=== PATIENT | female | born 1975 ===

== ENCOUNTER 2016-03-03 15:44 | Emergency (ER) | payer MEDICAID ==
[~2016-03-03] VITALS: Ht 160 cm; Wt 72.7 kg
[~2016-03-03 15:44] MED LIST: ACYC200C2 PO; PREN1TAB47 PO
[2016-03-03 15:47] VITALS: BP 114/76; PULSE 95; RESP 16; O2SAT 98
[2016-03-03 16:59] LABS: BASOPHILS % (AUTO) 0.5 % (0-3); EOSINOPHILS % (AUTO) 0.2 % (0-5); MONOCYTES % (AUTO) 15.9 % (4-12); Mean Corpuscular Volume 84.9 fL (81-100); NEUTROPHILS % (AUTO) 71.5 % (40-74); Platelet Count 407 bil/L (150-400)
[2016-03-03 17:27] LABS: TROPONIN T < 0.010 ug/L (0.0-0.011)
[2016-03-03 18:19] VITALS: BP 98/63; PULSE 84; RESP 22; O2SAT 95
[2016-03-03] MEDS ORDERED: Ketorolac 30 mg/mL 2 mL Inj IM ONE (19:00)
[2016-03-03] MEDS ORDERED: Ondansetron 8 mg ODT Tablet PO ONE (19:00)
--- NOTE | 2016-03-03 19:28 | ED.REPORT ---
HPI-Headache Date of Service Mar 03, 2016 ED Provider: Greg Johnson PA-C Patient is 40-year-old female with chief complaint of headache. States that her headache began last night as a "light headache" with pain in her left congregation. She noticed shortly after that noticed a foreign body sensation in her left eye and her left eye became bloodshot. She was seen in urgent care last night and prescribed ondansetron and ketorolac. She did not find these helpful. Today her pain is a throbbing "tight pressure" that she locates across the frontal part of her forehead. He also complains of sinus "burning", clear nasal discharge, cough that triggered by deep inhalation and diarrhea, chills last night, and myalgias (which are normal and at baseline for her). Admits a history of headaches "related to stress" that sometimes are occipital and sometimes frontal, but of less severity than this headache today. Denies vision changes, chest pain, shortness of breath, wheezing, abdominal pain, vomiting. Nursing Notes Stated Complaint: DIZZY/HEADACHE/FATIGUE Chief Complaint: General Complaint Nursing Notes Reviewed: Yes Allergies: Coded Allergies: No Known Allergies (Verified , 03/03/16) Scheduled Acyclovir-Expunged Drug, Do Not Renew! (Acyclovir-Expunged Drug, Do Not Renew!) 200 Mg Capsule 200 MG PO DAILY Vit/Fe Fumarate/Fa-Expunged Drug, Do (-Expunged Drug, Do Not Renew!) 1 Tab Tablet 1 TAB PO DAILY General Time Seen by MD: 18:26 Chief Complaint Headache Sudden in Onset?: No Past Medical History Past Medical History Fibromyalgia 3 bulging disks in back Tetanus per old reports Family History Depression Social History Alcohol Use: 1-3 per day Drug Use: Denies drug use Ambulatory Status Independent Review of Systems Negative unless otherwise stated otherwise in history of present illness Physical Exam General: Well appearing, well developed, well nourished, no acute distress. Appears to be resting comfortably on the gurney looking at her phone Head: Atraumatic, normocephalic. Eyes: Conjunctival hemorrhage, lateral aspect of the left eye. Anterior chamber clear. No discharge. Vision grossly intact. ENT: Voice clear, hearing grossly intact. Respiratory: Regular rate and rhythm. Breath sounds present, clear to auscultation and equal bilaterally. Cardiovascular: Regular rate and rhythm, without murmur, gallop or rub. No pedal edema. Gastrointestinal: Abdomen flat and non-tender without guarding or rebound. Bowel sounds normoactive. Skin: Warm and dry. Neurological: Grossly nonfocal. Cranial nerves: Vision grossly intact, PERRL, EOMI. Facial motion symmetrical, sensation to light touch over forehead, maxilla and mandible present and equal B /L. Voice clear and fluent, no drooling/pooling of saliva, uvula rises midline. Psychological: Alert and oriented. Speech appropriate, linear and logical. Behavior appropriate. Initial Vital Signs Vital Signs (First) Date Time Temp Pulse Resp B/P Pulse Ox O2 Delivery O2 Flow Rate FiO2 03/03/16 15:47 38.2 95 16 114/76 98 Room Air Initial VS: Reviewed, Vital signs abnormal (febrile) Interpretation & Diagnostics Lab Results Interpretation Result Diagram: 03/03/16 1615 03/03/16 1615 Test 03/03/16 16:15 03/03/16 16:58 03/03/16 19:29 White Blood Count 6.0th/mm3 (3.8-10.1) Red Blood Count 4.65mil/mm3 (3.90-5.20) Hemoglobin 13.0g/dL (12.0-15.6) Hematocrit 39.5% (35.0-46.0) Mean Corpuscular Volume 84.9fL (81-100) Mean Corpuscular Hemoglobin 28.0pg (27.0-35.0) Mean Corpuscular Hemoglobin Concent 32.9% (32.0-37.0) Red Cell Distribution Width 14.9% (12.3-15.4) Platelet Count 407bil/L (150-400) Neutrophils (%) (Auto) 71.5% (40-74) Lymphocytes (%) (Auto) 11.9% (14-46) Monocytes (%) (Auto) 15.9% (4-12) Eosinophils (%) (Auto) 0.2% (0-5) Basophils (%) (Auto) 0.5% (0-3) Erythrocyte Sedimentation Rate 22mm/hr (0-32) Sodium Level 133mEq/L (134-144) Potassium Level 4.4mEq/L (3.5-5.2) Chloride Level 99mEq/L (97-108) Carbon Dioxide Level 22mmol/L (18-29) Blood Urea Nitrogen 15mg/dL (6-20) Creatinine 0.69mg/dL (0.57-1.00) Estimat Glomerular Filtration Rate 136mL/min (>59) Glucose Level 93mg/dL (60-99) Calcium Level 8.2mg/dL (8.5-10.1) Magnesium Level 2.0mg/dL (1.6-2.6) Total Bilirubin 0.2mg/dL (0.0-1.2) Aspartate Amino Transf (AST/SGOT) 26U/L (0-50) Alanine Aminotransferase (ALT/SGPT) 23U/L (0-32) Alkaline Phosphatase 59U/L (25-150) Troponin T < 0.010ug/L (0.0-0.011) Total Protein 7.4g/dL (6.4-8.4) Albumin 4.1g/dL (3.4-5.0) Hold Sarmiento Top Tube Received (Received) Urine Color Straw (YELLOW) Urine Appearance Clear (CLEAR,HAZY) Urine pH 6.5 (5.0-8.0) Urine Specific [place] 1.005 (1.003-1.035) Urine Protein Negativemg/dL (NEG,TRACE) Urine Glucose (UA) Negativemg/dL (NEGATIVE) Urine Ketones Negativemg/dL (NEGATIVE) Urine Occult Blood Moderate (NEGATIVE) Urine Nitrite Negative (NEGATIVE) Urine Bilirubin Negative (NEGATIVE) Urine Urobilinogen Normalmg/dL (NORMAL) Urine Leukocyte Esterase Trace (NEGATIVE) Urine RBC 3-10/hpf (0-2) Urine WBC 6-10/hpf (0-5) Urine Epithelial Cells Few/hpf (NONE-MOD) Urine Crystals Amorphous urates (NONE Urine Bacteria Few/hpf (NONE-FEW) Urine Hyaline Casts None/lpf (NONE) Urine Granular Casts None seen (NONE SEEN) Urine Waxy Casts None seen (NONE SEEN) Urine Red Blood Cell Casts None seen (NONE SEEN) Urine White Blood Cell Casts None seen (NONE SEEN) Urine Mucus None seen (None Seen) Urine Trichomonas None seen (NONE SEEN) Urine Yeast None (NONE SEEN) Urinalysis Comment None Urine Culture Reflexed Indicated Re-Eval/Medical Decision Med Decision/Clinical Course Discussed this case with Dr. Moon, who met with and examined the patient, and took over care of the patient at end of shift. Considered vasculitis, ESR normal Consider meningitis, however patient is alert and oriented, supple neck Clinical presentation is inconsistent with an aneurysm. Re-Evaluation/Progress : Time of Eval: 20:57 Re-Evaluation/Progress Note: Temperature reduced to 36.7C orally, headache has improved but still present. Discharge & Departure Impression: Primary Impression: Headache Headache type: unspecified Headache chronicity pattern: acute headache Intractability: not intractable Qualified Code: R51 - Headache Additional Impression: Fever Fever type: unspecified Qualified Code: R50.9 - Fever, unspecified Disposition: Home Discharge Condition All VS Reviewed: Yes Condition: Improved Patient Instructions: Acute Headache (ED), Influenza (DC) Additional Instructions: You have a fever, runny nose and headache. We are seeing lots of influenza A& B. You will be also tested for influenza in a couple of hours. I understand you are feeling better and you feel ready be discharged home. That is a good sign. I recommend that she take Tamiflu twice daily for 5 days. This is an anti-influenza medication. Tylenol or Motrin as directed for fever and body aches. Avoid aspirin products. Follow-up with her primary care physician. If you develop a thunderclap headache or neck stiffness or any worsening symptoms and come right back to the emergency department. Referrals: Lorena Levine (PCP) EDSupervising Provider for APC: Brent Moon Attestation Portions of this note were transcribed by Shirley Luna. I, Dr. Moon personally performed the history, physical exam and medical decision-making; I reviewed and confirmed the accuracy of the information in the transcribed note. Signed by: Bell Finley, 03/04/2016 0028 Attending Statement I personally spoke with Mrs. Jones. I performed an examination. She has no signs of meningitis. She has classic influenza A. We will treat her. It is going to be several hours before we can prove this. Evidently the lab is out of the materials to run the test. Influenza A is highly likely. Anti- inflammatories and Tamiflu. Meningitis clinically very low probability. I think the risks of a spinal tap outweigh the benefit. This was explained. Patient concurred. As it were the influenza A came back positive. copies to: Lorena Levine Seth PA-C Mar 03, 2016 19:28 Brent Moon DO Mar 04, 2016 00:09 Shirley Luna Mar 04, 2016 00:11
[2016-03-03 20:23] LABS: APPEARANCE,URINE CLEAR (CLEAR,HAZY); COLOR,URINE STRAW (YELLOW); OCCULT BLOOD,URINE MODERATE (NEGATIVE); PH,URINE 6.5 (5.0-8.0); UROBILINOGEN,URINE NORMAL (NORMAL)
[2016-03-04 01:14] VITALS: BP 99/69; PULSE 64; RESP 14; O2SAT 97
== END 2016-03-04 01:15 | disposition home or self-care (01) ==
LOC: SED 15:44
DX: J10.89 Influenza due to other identified influenza virus with other manifestations (principal)
CPT/HCPCS: 36415; 80053; 81000; 81025; 83735; 84484; 85025; 85651; 87086; 87804; 93005; 96372; 99284; J1885

== ENCOUNTER 2016-03-28 13:24 | Emergency (ER) | payer MEDICAID ==
[~2016-03-28] VITALS: Ht 160 cm; Wt 72.7 kg
[2016-03-28 13:29] VITALS: BP 106/69; PULSE 107; RESP 15; O2SAT 97
[2016-03-28] MEDS ORDERED: 0.9% Sodium Chloride 1,000 ML IV ONE (15:54)
[2016-03-28] MEDS ORDERED: MetoCLOpramide 5 mg/mL 2 mL Inj IVPUSH ONE (15:55)
[2016-03-28 16:07] LABS: BASOPHILS % (AUTO) 0.3 % (0-3); EOSINOPHILS % (AUTO) 2.1 % (0-5); MONOCYTES % (AUTO) 9.2 % (4-12); Mean Corpuscular Hemoglobin 27.7 pg (27.0-35.0); Mean Corpuscular Volume 84.7 fL (81-100); NEUTROPHILS % (AUTO) 63.7 % (40-74); Platelet Count 545 bil/L (150-400)
--- NOTE | 2016-03-28 16:09 | ED.REPORT ---
HPI-Headache Date of Service Mar 28, 2016 ED Provider: Cm Thomas MD 40 year old female presents to the ER complaining of three days of left side temporal headache. Associated symptoms include left side jaw pain, and nausea. Patient denies aura, visual changes, fever, vomiting, or altered mental status. Symptoms are similar to prior headaches. Nursing Notes Stated Complaint: PERSISTANT HEADACHE,PAIN LT SIDE OF HEAD Chief Complaint: Headache Nursing Notes Reviewed: Yes Allergies: Coded Allergies: No Known Allergies (Verified , 03/28/16) Scheduled Acyclovir-Expunged Drug, Do Not Renew! (Acyclovir-Expunged Drug, Do Not Renew!) 200 Mg Capsule 200 MG PO DAILY Vit/Fe Fumarate/Fa-Expunged Drug, Do (-Expunged Drug, Do Not Renew!) 1 Tab Tablet 1 TAB PO DAILY General Time Seen by MD: 15:31 Chief Complaint Headache Hx Obtained From: Patient Arrived By: Walk-in Sudden in Onset?: No Onset Occurred: 3 days ago Symptom Duration: Since onset Location: : Frontal left: Generalized: Occipital left: Parietal left: Temporal left Quality: Painful Severity: Current: Moderate Severity: Maximum: Moderate Associated with: Reports: Nausea, Denies: Aura motor, Aura sensory, Aura visual, Confusion, Fever, Vomiting Past Medical History Past Medical History Fibromyalgia 3 bulging disks in back Tetanus per old reports Family History Depression Social History Alcohol Use: 1-3 per day Drug Use: Denies drug use Ambulatory Status Independent Review of Systems Constitutional: Denies: Chills, Fever Eyes: Reports: Photophobia, Denies: Visual loss bilateral GI: Reports: Nausea, Denies: Vomiting Neurologic: Reports: Headache, Denies: Change LOC, Confusion, Numbness, Slurred speech, Syncope, Vision change Complete sys rev & neg: except as marked. Physical Exam Initial Vital Signs Vital Signs (First) Date Time Temp Pulse Resp B/P Pulse Ox O2 Delivery O2 Flow Rate FiO2 03/28/16 13:29 37.2 107 15 106/69 97 Room Air Initial VS: Reviewed Respiratory: Breath sounds normal, Clear to auscultation, No respiratory distress Cardiovascular: Regular rate & rhythm, Heart sounds normal, Intact distal pulses Extremities: Vascular intact, Neuro intact, No swelling, No tenderness Skin: Warm, Dry, No cyanosis Psychiatric: Mood/affect normal, Behavior normal, Normal thought content General/Constitutional: Awake, Alert, Well developed, Well nourished Head / Eyes: Atraumatic, Normocephalic, PERRL, EOMI Head / Scalp Abnl: Positive: Scalp tender frontal L, Scalp tender frontal R, Scalp tender parietal L, Scalp tender parietal R, Scalp tender temporal L, Scalp tender temporal R Neck: Supple, No meningismus, Full range of motion, No swelling, Non-tender, No masses Neurologic: Oriented X3, Speech NL, No motor deficits, No sensory deficits, CN II - XII intact, Cerebellar NL ENT: Airway patent, Mucous membranes moist Sinus: Positive: Tender frontal L, Tender frontal R, Tender maxillary L, Tender maxillary R, Tender moderate Interpretation & Diagnostics Lab Results Interpretation Result Diagram: 03/28/16 1555 03/28/16 1555 Test 03/28/16 15:55 White Blood Count 12.2th/mm3 (3.8-10.1) Red Blood Count 4.77mil/mm3 (3.90-5.20) Hemoglobin 13.2g/dL (12.0-15.6) Hematocrit 40.4% (35.0-46.0) Mean Corpuscular Volume 84.7fL (81-100) Mean Corpuscular Hemoglobin 27.7pg (27.0-35.0) Mean Corpuscular Hemoglobin Concent 32.7% (32.0-37.0) Red Cell Distribution Width 14.9% (12.3-15.4) Platelet Count 545bil/L (150-400) Neutrophils (%) (Auto) 63.7% (40-74) Lymphocytes (%) (Auto) 24.5% (14-46) Monocytes (%) (Auto) 9.2% (4-12) Eosinophils (%) (Auto) 2.1% (0-5) Basophils (%) (Auto) 0.3% (0-3) Sodium Level 138mEq/L (134-144) Potassium Level 4.2mEq/L (3.5-5.2) Chloride Level 100mEq/L (97-108) Carbon Dioxide Level 25mmol/L (18-29) Blood Urea Nitrogen 9mg/dL (6-20) Creatinine 0.56mg/dL (0.57-1.00) Estimat Glomerular Filtration Rate 173mL/min (>59) Glucose Level 116mg/dL (60-99) Calcium Level 8.3mg/dL (8.5-10.1) Hold Sarmiento Top Tube Received (Received) Re-Eval/Medical Decision Med Decision/Clinical Course In summary, the patient is a 40-year-old female, who presents with headache. Our primary and secondary assessment reveals an awake, alert patient in no acute distress. Hemodynamically stable and afebrile. Exam reveals normal neurologic exam. Suspect the patient's headache represents a migraine or tension type headache. Considered other causes of headache to include: Subdural hemorrhage, subarachnoid hemorrhage, [employer] IN[employer] tumor, meningitis, encephalitis, venous sinus thrombosis, dissection, temporal arteritis, intracranial hypertension ( psuedotumor cerebri), sinusitis or cervicalgia, although these are less likely based on the history, exam findings as noted above. Based on this, I feel that imaging would be low yield and is not warranted at this time. Discussed the risks and benefits of this with the patient who is in agreement. Also discussed with the patient at length that if symptoms change, worsen, or persist, should return to the ER for reevaluation. They understand and agree with the plan. Given the patient's workup, feel they are safe for discharge. The patient was treated with 30 mg of intramuscular Toradol and reported complete symptom resolution. Source of Hx: Old records Re-Evaluation/Progress : Time of Eval: 16:19 Re-Evaluation/Progress Note: Discussed lab results and plan to discharge. Patient is amenable to the plan. Return precautions given. All other questions addressed. Counseled Regarding: Diagnosis, Lab results, Need for follow-up, When/why to return to ED Discharge & Departure Impression: Primary Impression: Tension-type headache Headache chronicity pattern: acute headache Intractability: not intractable Qualified Code: G44.209 - Tension-type headache, unspecified, not intractable Disposition: Home Discharge Condition All VS Reviewed: Yes Condition: Stable Patient Instructions: Tension Headache (DC) Additional Instructions: Thank you for seeking care at emergency room. It is difficult for us to make definitive diagnoses in the ED but we believe that you are experiencing a migraine or tension type headache. Our primary goal today in the ED was to evaluate you for any life-threatening conditions. Your evaluation was reassuring. You should follow-up with your primary doctor in the next week. Get plenty of rest over the next day as this can often help with headaches. You should return to the ED immediately if you develop worsening/change in headache, neck stiffness, vision changes, fevers, vomiting, cough, shortness of breath, chest pain, lightheadedness, weakness or any other concerning signs or symptoms. Thank you for letting us partake in your care today. Referrals: Lorena eLvine (PCP) [facility] Attestation Portions of this note were transcribed by Prem Caba. I, Dr. Thomas, personally performed the history, physical exam and medical decision-making; I reviewed and confirmed the accuracy of the information in the transcribed note. Signed by: Bell Dave, 03/28/2016 and 16:25 copies to: Lorena Levine Beck O MD Mar 28, 2016 16:09 PREM CABA Mar 28, 2016 16:23
[2016-03-29] MEDS ORDERED: PROC-4 PO (10:46)
[2016-03-29] MEDS ORDERED: NPR500T PO (10:46)
== END 2016-03-28 16:36 | disposition home or self-care (01) ==
LOC: SED 13:24
DX: G44.209 Tension-type headache, unspecified, not intractable (principal); R68.84 Jaw pain; R11.0 Nausea; M79.7 Fibromyalgia

== ENCOUNTER 2016-03-29 09:23 | Emergency (ER) | payer MEDICAID ==
[~2016-03-29] VITALS: Ht 160 cm; Wt 75.5 kg
[2016-03-29 09:27] VITALS: BP 108/72; PULSE 80; RESP 16; O2SAT 99
--- NOTE | 2016-03-29 09:35 | ED.REPORT ---
HPI-Headache Date of Service Mar 29, 2016 ED Provider: Jan Bourne DO 40 year old female with a history of fibromyalgia, psychiatric admissions, and alcohol abuse presents to the ER complaining of several weeks of gradually worsening headache. Patient was seen here in the ER yesterday for similar symptoms, at which time she was diagnosed with a tension headache, treated with IM Toradol and discharged. She states that her treatment yesterday did not resolve symptoms, she merely "claimed that she was improved to please the provider". Since then she has new onset "sharp shooting" left leg and arm pain that is different than her typical fibromyalgia symptoms. Headache is not thunder-clap in nature. She denies nasal congestion, nausea, and vomiting. Yesterday she complained of left side headache lasting several days, but now reports that the pain has been present for weeks and has consistently been localized frontally. Patient spontaneously starts talking about childhood trauma. Nursing Notes Stated Complaint: LEFT HEAD PAIN/BODY PAIN/LEFT EYE BLOODSHOT Chief Complaint: Headache Nursing Notes Reviewed: Yes Allergies: Coded Allergies: No Known Allergies (Verified , 03/28/16) Scheduled Acyclovir-Expunged Drug, Do Not Renew! (Acyclovir-Expunged Drug, Do Not Renew!) 200 Mg Capsule 200 MG PO DAILY Vit/Fe Fumarate/Fa-Expunged Drug, Do (-Expunged Drug, Do Not Renew!) 1 Tab Tablet 1 TAB PO DAILY Scheduled PRN Naproxen (Naproxen) 500 Mg Tab 500 MG PO BID PRN PRN For Pain Prochlorperazine Maleate (Compazine) 10 Mg Tablet 10 MG PO TID PRN PRN For Headache General Time Seen by MD: 09:34 Chief Complaint Headache Hx Obtained From: Patient Arrived By: Walk-in Sudden in Onset?: No Onset Occurred: 4 days ago Symptom Duration: Since onset Location: : Frontal left: Frontal right Quality: Painful, Pressure Severity: Current: Moderate Severity: Maximum: Moderate Associated with: Reports: Nausea Pertinent Negative: Pt denies other symptoms Recent Healthcare: Recent doctor visit Similar Sx Previous: Yes Past Medical History Past Medical History Fibromyalgia 3 bulging disks in back Tetanus per old reports Family History Depression Smoking History Never Smoker Social History Alcohol Use: In recovery Drug Use: Denies drug use Ambulatory Status Independent Review of Systems Constitutional: Denies: Chills, Fever Ears / Nose / Throat: Denies: Earache bilateral, Nasal congestion GI: Denies: Nausea, Vomiting Musculoskeletal: Reports: Extremity pain (Left leg) Neurologic: Reports: Headache, Denies: Slurred speech, Syncope, Unable to speak Complete sys rev & neg: except as marked. Physical Exam Initial Vital Signs Vital Signs (First) Date Time Temp Pulse Resp B/P Pulse Ox O2 Delivery O2 Flow Rate FiO2 03/29/16 09:27 36.0 80 16 108/72 99 Room Air Initial VS: Reviewed Respiratory: Breath sounds normal, Clear to auscultation, No respiratory distress Cardiovascular: Regular rate & rhythm, Heart sounds normal, Intact distal pulses Abdomen / GI: Soft, Non-tender, No guarding, No rebound, No distention Extremities: Vascular intact, Neuro intact, No swelling, No tenderness Skin: Warm, Dry, No cyanosis General/Constitutional: Awake, Alert, Well developed, Well nourished Head / Eyes: Atraumatic, Normocephalic, PERRL, EOMI Neck: Supple, No meningismus, Full range of motion, No swelling, Non-tender, No masses Neurologic: Oriented X3, Speech NL, No motor deficits, No sensory deficits ENT: Airway patent, Mucous membranes moist Sinus: Positive: Tender frontal L, Tender frontal R, Tender maxillary L, Tender maxillary R Re-Eval/Medical Decision Med Decision/Clinical Course I do not suspect any life-threatening or emergent pathology. Not maximal in onset not thunderclap in nature, slow and insidious frontal headache without neurologic deficits patient is clinically very well-appearing. She is feeling better at the time of discharge. She is urged to follow-up with her primary care doctor. Return precautions given. Source of Hx: Old records Re-Evaluation/Progress #1: Time of Eval: 10:10 Re-Evaluation/Progress Note: Discussed physical examination findings and plan to discharge. Patient is amenable to the plan. Re-Evaluation/Progress #2: Time of Eval: 10:54 Re-Evaluation/Progress Note: Patient resting peacefully upon re-entering the room. When awakened she reports that symptoms are unchanged but she is willing to be discharged. Return precautions given. All other questions addressed. Counseled Regarding: Diagnosis, Need for follow-up, When/why to return to ED Discharge & Departure Impression: Primary Impression: Headache Disposition: Home Discharge Condition All VS Reviewed: Yes Condition: Stable Patient Instructions: Acute Headache (DC) Additional Instructions: Your workup today was reassuring, I do not believe that there is any dangerous cause for your symptoms. Call your primary care doctor today to arrange a follow-up appointment this week. Take the prescribed naproxen and Compazine to treat symptoms. Return to the ER if you develop any worsening pain, numbness/tingling, weakness , confusion, loss of consciousness, or any other concerning symptoms. Referrals: Lorena Levine (PCP) [facility]а Attestation Portions of this note were transcribed by Prem Caba. I, Dr. Bourne, personally performed the history, physical exam and medical decision-making; I reviewed and confirmed the accuracy of the information in the transcribed note. Signed by: Bell Dave, 03/29/2016 and 10:58 copies to: Lorena Levine Timothy S DO Mar 29, 2016 09:34 PREM CABA Mar 29, 2016 09:41
[2016-03-29] MEDS ORDERED: 0.9% Sodium Chloride 1,000 ML IV ONE (10:15)
[2016-03-29] MEDS ORDERED: ProchlorPERazine 5 mg/mL 2 mL Inj IVPUSH ONE (10:15)
[2016-03-29] MEDS ORDERED: Dexamethasone 10 mg/mL Inj IVPUSH ONE (10:15)
[2016-03-29] MEDS ORDERED: Ketorolac 15 mg/mL Inj IVPUSH ONE (10:25)
[2016-03-29] MEDS ORDERED: PROC-4 PO (10:46)
[2016-03-29] MEDS ORDERED: NPR500T PO (10:46)
[2016-03-29 12:09] VITALS: BP 112/68; PULSE 76; RESP 16; O2SAT 99
== END 2016-03-29 12:10 | disposition home or self-care (01) ==
LOC: SED 09:23
DX: R51 Headache (principal); M79.602 Pain in left arm; M79.605 Pain in left leg; M79.7 Fibromyalgia
CPT/HCPCS: 96361; 96374; 96375; 99284; J0780; J1100; J1200; J1885; J7030

== ENCOUNTER 2016-03-31 09:16 | Emergency (ER) | payer MEDICAID ==
[~2016-03-31] VITALS: Ht 160 cm; Wt 75.5 kg
[~2016-03-31 09:16] MED LIST changes: +NPR500T PO; +PROC-4 PO
[2016-03-31 09:19] VITALS: BP 133/90; PULSE 88; RESP 18; O2SAT 97
--- NOTE | 2016-03-31 09:36 | ED.REPORT ---
HPI-Headache Date of Service Mar 31, 2016 ED Provider: Doc,Ed MD 40 year old female with a history of fibromyalgia, psychiatric admissions, and alcohol abuse presents to the ER complaining of several weeks of gradually worsening headache. The pain is located to the left side of her head and around her left eye. The patient was seen in the ED on the and of this month , as well as the 03 of March for the same. During her last visit she was discharged home with Naproxen and Compazine. Headache is not thunder-clap in nature. Her pain is not worse with chewing. She denies nasal congestion, nausea , vomiting, or photophobia. She has an appointment with her PCP next Monday. Nursing Notes Stated Complaint: HEADACHE/EYE PRESSURE/BLOOD IN EYE Chief Complaint: Eye Nursing Notes Reviewed: Yes Allergies: Coded Allergies: No Known Allergies (Verified , 03/28/16) Scheduled Acyclovir-Expunged Drug, Do Not Renew! (Acyclovir-Expunged Drug, Do Not Renew!) 200 Mg Capsule 200 MG PO DAILY Amoxicillin/Clav K 875-125 mg (Augmentin 875-125 mg) 1 Each Tablet 1 TABLET PO BID Vit/Fe Fumarate/Fa-Expunged Drug, Do (-Expunged Drug, Do Not Renew!) 1 Tab Tablet 1 TAB PO DAILY Scheduled PRN Naproxen (Naproxen) 500 Mg Tab 500 MG PO BID PRN PRN For Pain Naproxen (Naproxen) 500 Mg Tab 500 MG PO BID PRN PRN For Pain Prochlorperazine Maleate (Compazine) 10 Mg Tablet 10 MG PO TID PRN PRN For Headache General Time Seen by MD: 09:36 Chief Complaint Headache Hx Obtained From: Patient Arrived By: Walk-in Sudden in Onset?: No Onset Occurred: More than a week ago... Symptom Duration: Since onset Location: : Frontal left: Occipital left: Parietal left: Retro orbital (left): Temporal left Quality: Painful Severity: Current: Moderate Severity: Maximum: Severe Recent Healthcare: No recent hospitalization, Recent doctor visit Similar Sx Previous: Yes Past Medical History Past Medical History Fibromyalgia 3 bulging disks in back Tetanus per old reports Family History Depression Smoking History Never Smoker Social History Alcohol Use: In recovery Drug Use: Denies drug use Other Social History: Local resident Ambulatory Status Independent Review of Systems Constitutional: Denies: Fever Eyes: Reports: Eye pain bilateral, Denies: Photophobia GI: Denies: Nausea, Vomiting Neurologic: Reports: Headache Complete sys rev & neg: except as marked. Physical Exam Initial Vital Signs Vital Signs (First) Date Time Temp Pulse Resp B/P Pulse Ox O2 Delivery O2 Flow Rate FiO2 03/31/16 09:19 36.9 88 18 133/90 97 Room Air Initial VS: Reviewed ENT: Mucous membranes moist, Conjunctiva normal, No scleral icterus Respiratory: Breath sounds normal, Clear to auscultation, No respiratory distress Cardiovascular: Regular rate & rhythm, Heart sounds normal, Intact distal pulses Abdomen / GI: Soft, Non-tender, No guarding, No rebound, No distention Lymphatic: No lymphadenopathy Extremities: Vascular intact, Neuro intact, No swelling, No tenderness Skin: Warm, Dry, No cyanosis Psychiatric: Mood/affect normal, Behavior normal, Normal thought content General/Constitutional: Awake, Alert, Cooperative Head / Eyes: Normocephalic, PERRL, EOMI Cornea/Anterior Chamber: Negative: Fluorescein uptake L..., Fluorescein uptake R... Conjunctiva / Sclera: Positive: Subconj hemorrhage left Left eye pressure: 18, 19, and 20 Neck: Supple, No meningismus, Full range of motion, No swelling, Non-tender, No masses Neurologic: Oriented X3, Speech NL, No motor deficits, No sensory deficits, CN II - XII intact, Cerebellar NL, Memory NL Interpretation & Diagnostics Lab Results Interpretation Result Diagram: 03/31/16 1020 03/31/16 1020 Test 03/31/16 10:20 03/31/16 11:08 03/31/16 13:08 White Blood Count 11.1th/mm3 (3.8-10.1) Red Blood Count 4.74mil/mm3 (3.90-5.20) Hemoglobin 13.1g/dL (12.0-15.6) Hematocrit 40.0% (35.0-46.0) Mean Corpuscular Volume 84.4fL (81-100) Mean Corpuscular Hemoglobin 27.6pg (27.0-35.0) Mean Corpuscular Hemoglobin Concent 32.8% (32.0-37.0) Red Cell Distribution Width 14.9% (12.3-15.4) Platelet Count 512bil/L (150-400) Neutrophils (%) (Auto) 62.6% (40-74) Lymphocytes (%) (Auto) 26.3% (14-46) Monocytes (%) (Auto) 8.0% (4-12) Eosinophils (%) (Auto) 2.4% (0-5) Basophils (%) (Auto) 0.5% (0-3) Erythrocyte Sedimentation Rate 18mm/hr (0-32) Sodium Level 138mEq/L (134-144) Potassium Level 4.5mEq/L (3.5-5.2) Chloride Level 102mEq/L (97-108) Carbon Dioxide Level 26mmol/L (18-29) Blood Urea Nitrogen 9mg/dL (6-20) Creatinine 0.61mg/dL (0.57-1.00) Estimat Glomerular Filtration Rate 156mL/min (>59) Glucose Level 91mg/dL (60-99) Calcium Level 8.2mg/dL (8.5-10.1) Prothrombin Time 10.1sec (8.1-12.5) Prothromb Time International Ratio 0.95ratio CSF Appearance Clear (CLEAR) CSF Color Colorless (COLORLESS) CSF WBC 1/mm3 (0-5) CSF RBC 0/mm3 CSF Mononuclear WBCs % CSF Polynuclear WBCs % CSF Other Cells CSF Glucose 51mg/dL (45-90) CSF Total Protein 22mg/dL (15-45) CT Head Interpretation IMPRESSION: 1. No acute intracranial abnormalities. 2. left maxillary sinusitis. Dictated by: Annabella Castro M.D. on 03/31/2016 at 11:46 Study: Head CT no contrast Interpretation / Wet Read by: Interpret - Radiologist Procedures Lumbar Puncture Time: 12:42 Procedure Performed by: ED physician Consent / Setup / Site Prep: Informed consent provided, Consent from patient , Time-out performed, Hand hygiene observed, Stand sterile technique, Sterile drapes applied, Patient sitting up Skin Preparation Agent: Hibiclens - Chlorhexidine Local Anesthesia: Lidocaine 1% Inserted Needle at: L3 L4 Post-Procedure / Complications: Antibiotic oint applied, Dressing applied, No complications, Tolerated procedure well, Patient stable Re-Eval/Medical Decision Med Decision/Clinical Course This is the fourth visit for this patient in less than 1 month regarding headache, a more resource intensive workup is performed for this reason. It should be noted overall my clinical suspicion for life-threatening or emergent pathology was low. Ocular exam is performed and there is no evidence of hyphema, hypopyon, pupillary irregularity, corneal abrasion or ulcer, acute angle-closure glaucoma. It does not seem that this headache is related to eye symptoms. Head CT basic labs and lumbar puncture performed all of which were normal including a negative ESR and normal white blood cell count. This seems unlikely to be subarachnoid, subdural hematoma, venous sinus thrombosis, and temporal arteritis, or any other life-threatening pathology. As noted a few days ago this patient has an absence of symptoms to suggest sinusitis however as this is the only abnormal clinical finding and the patient has had prolonged symptoms for greater than a month it seems reasonable to treat with a course of Augmentin and see if this helps her clinical course. She is prescribed Augmentin and naproxen. Return and follow-up precautions are given. Source of Hx: Old records Re-Evaluation/Progress #1: Time of Eval: 10:19 Re-Evaluation/Progress Note: Rechecked the patient. After our initial interview she states that she started to pay attention and her pain is worse with chewing. Re-Evaluation/Progress #2: Time of Eval: 10:28 Re-Evaluation/Progress Note: Completed thorough eye examination. Re-Evaluation/Progress #3: Time of Eval: 11:54 Re-Evaluation/Progress Note: Rechecked the patient. Discussed results, diagnosis, and plan for lumbar puncture. She understands and agrees with plan. Re-Evaluation/Progress #4: Time of Eval: 12:39 Re-Evaluation/Progress Note: Prepped the patient for lumbar puncture. All questions were addressed. Re-Evaluation/Progress #5: Time of Eval: 13:57 Re-Evaluation/Progress Note: Rechecked the patient. Discussed plan for discharge. All questions were addressed. Counseled Regarding: Diagnosis, Need for follow-up, When/why to return to ED Discharge & Departure Impression: Primary Impression: Headache Headache type: unspecified Headache chronicity pattern: unspecified pattern Intractability: not intractable Qualified Code: R51 - Headache Additional Impression: Sinusitis Disposition: Home Discharge Condition All VS Reviewed: Yes Condition: Stable Patient Instructions: Sinusitis (ED) Additional Instructions: Thank you for entrusting us with your care today. Your exam, labs, lumbar puncture, and head CT today are reassuring. There is no sign of anything acutely dangerous at this time. Your head CT does show evidence of a possible sinusitis. I have written you a prescription for an antibiotic called Augmentin. Continue to use Naproxen as needed for your pain and Compazine as needed for nausea. Keep your appointment with your primary care provider next week. Return to the emergency department if you develop visual changes, numbness , weakness, confusion, or any other new or concerning symptoms. Referrals: Lorena Levine (PCP) Scribe Attestation Portions of this note were transcribed by Toya Allan. I, Dr. Bourne personally performed the history, physical exam and medical decision-making; I reviewed and confirmed the accuracy of the information in the transcribed note. Signed by: Bell Irene, 03/31/2016 and 1400. copies to: Lorena Levine Timothy S DO Mar 31, 2016 09:36 Toya Allan Mar 31, 2016 09:43
[2016-03-31] MEDS ORDERED: ProchlorPERazine 5 mg/mL 2 mL Inj IVPUSH ONE (09:40)
[2016-03-31] MEDS ORDERED: 0.9% Sodium Chloride 1,000 ML IV ONE (09:40)
[2016-03-31] MEDS ORDERED: Fluorescein 0.6 mg Ophthalmic Strip ONE (10:05)
[2016-03-31] MEDS ORDERED: 0.9% Sodium Chloride Inhalation Solution ONE (10:05)
[2016-03-31] MEDS ORDERED: Tetracaine 0.5% 4 mL Ophthalmic Solution ONE (10:06)
[2016-03-31 10:37] LABS: BASOPHILS % (AUTO) 0.5 % (0-3); EOSINOPHILS % (AUTO) 2.4 % (0-5); Mean Corpuscular Hemoglobin 27.6 pg (27.0-35.0); Mean Corpuscular Volume 84.4 fL (81-100); NEUTROPHILS % (AUTO) 62.6 % (40-74); Platelet Count 512 bil/L (150-400)
[2016-03-31 11:11] LABS: ERYTHROCYTE SEDIMENTATION RATE 18 mm/hr (0-32)
[2016-03-31 11:29] LABS: INR 0.95 ratio
--- NOTE | 2016-03-31 11:51 | DRSVH ---
PROCEDURE: CT BRAIN WITHOUT CONTRAST ([id number]) INDICATIONS: 40 year-old woman with headache. TECHNIQUE: Noncontrast 4.5 mm thick angled axial sections acquired from the foramen magnum to the vertex, with c oronal reformats. COMPARISON: [facility], CT, CT BRAIN WO CON, 02/11/2015, 1:13. FINDINGS: Image quality: Excellent. CSF spaces: Basal cisterns are patent. No extra-axial fluid collections. Ventricles are normal in size and shape. Brain: No midline shift. No intracranial masses or hemorrhage. [place]-white matter interface is norm al. Skull and face: Calvarium and visualized facial bones are intact, without suspicious lesions. Sinuses: There is mucosal thickening and an air-fluid level in the left maxillary sinus. The mastoids are clear. IMPRESSION: 1. No acute intracranial abnormalities. 2. left maxillary sinusitis. Dictated by: Annabella Castro M.D. on 03/31/2016 at 11:46 Approved by: Annabella Castro M.D. on 03/31/2016 at 11:50
[2016-03-31 13:30] LABS: APPEARANCE,CSF CLEAR (CLEAR); COLOR,CSF COLORLESS (COLORLESS); WHITE BLOOD CELL,CSF 1 /mm3 (0-5)
[2016-03-31] MEDS ORDERED: AMOX-366 PO (14:14)
[2016-03-31] MEDS ORDERED: NPR500T PO (14:14)
[2016-03-31 14:32] VITALS: BP 130/89; PULSE 89; RESP 14; O2SAT 99
== END 2016-03-31 14:14 | disposition home or self-care (01) ==
LOC: SED 09:16
DX: R51 Headache (principal); J01.90 Acute sinusitis, unspecified; M79.7 Fibromyalgia
CPT/HCPCS: 36415; 62270; 70450; 80048; 82945; 84155; 85025; 85610; 85651; 87070; 87205; 89051; 96361; 96374; 96375; 99285; J0780; J1200; J7030

== ENCOUNTER 2016-04-03 17:31 | Emergency (ER) | payer MEDICAID ==
[~2016-04-03] VITALS: Ht 160 cm; Wt 72.7 kg
[~2016-04-03 17:31] MED LIST changes: +AMOX-366 PO
[2016-04-03 17:51] VITALS: BP 127/87; PULSE 85; RESP 16; O2SAT 97
--- NOTE | 2016-04-03 19:48 | ED.REPORT ---
HPI-General Illness Date of Service Apr 03, 2016 ED Provider: Brent Moon DO A 40 year old female with a history of fibromyalgia presents to the ED complaining of left eye redness and a headache. The pt reports that a "vein popped in her eye" two weeks ago. This seemed to have healed, but she then began experiencing headaches. These headaches are not concentrated behind her eye. She was seen in the ED on 03/31/[address] and spinal tap were performed. The CT indicated left maxillary sinusitis and the spinal tap was normal. The pt was discharged on Noroxin and saw her PCP two days ago, who has referred her to an gi tech. The headaches have continued since her last ED visit and are worse when she stands up. The pt does not wear contact lenses and denies discharge from her eye. Nursing Notes Stated Complaint: LEFT EYE PAIN/REDNESS/HEADACHE Chief Complaint: Eye Nursing Notes Reviewed: Yes Allergies: Coded Allergies: No Known Allergies (Verified , 03/28/16) Scheduled Acyclovir-Expunged Drug, Do Not Renew! (Acyclovir-Expunged Drug, Do Not Renew!) 200 Mg Capsule 200 MG PO DAILY Amoxicillin/Clav K 875-125 mg (Augmentin 875-125 mg) 1 Each Tablet 1 TABLET PO BID Vit/Fe Fumarate/Fa-Expunged Drug, Do (-Expunged Drug, Do Not Renew!) 1 Tab Tablet 1 TAB PO DAILY Scheduled PRN Naproxen (Naproxen) 500 Mg Tab 500 MG PO BID PRN PRN For Pain Naproxen (Naproxen) 500 Mg Tab 500 MG PO BID PRN PRN For Pain Prochlorperazine Maleate (Compazine) 10 Mg Tablet 10 MG PO TID PRN PRN For Headache General Time Seen by MD: 19:48 Chief Complaint Headache Hx Obtained From: Patient Arrived By: Walk-in Sudden in Onset?: No Onset Occurred: More than a week ago... Symptom Duration: Since onset Recent Healthcare: Recent doctor visit Similar Sx Previous: No Past Medical History Past Medical History Fibromyalgia 3 bulging disks in back Tetanus per old reports Past Surgical History intestinal surgery foot ear Family History Depression Smoking History Never Smoker Social History Alcohol Use: In recovery Drug Use: Denies drug use Other Social History: Local resident Ambulatory Status Independent Review of Systems Full Review of Systems Constitutional: Denies: Fever Eyes: Reports: Redness left, Denies: Discharge left Respiratory: Denies: Non-productive cough Cardiovascular: Denies: Chest pain GI: Denies: Abdominal pain Musculoskeletal: Denies: Back pain, Neck pain Skin: Denies Rash Neurologic: Reports: Headache Complete sys rev & neg: except as marked. Physical Exam Vital Signs Vital Signs Date Time Temp Pulse Resp B/P Pulse Ox O2 Delivery O2 Flow Rate FiO2 04/03/16 22:29 36.3 83 16 130/90 98 Room Air 04/03/16 22:28 36.3 83 16 130/90 98 Room Air 04/03/16 17:51 36.5 85 16 127/87 97 Room Air Initial VS: Reviewed General/Constitutional: Awake, Alert Head / Eyes: Atraumatic, Normocephalic, EOMI hyperemic left eye slight sluggish reactivity ENT: Atraumatic, Airway patent, Mucous membranes moist Neck: Atraumatic, Supple, No meningismus, Full range of motion Respiratory / Chest: Atraumatic, Breath sounds NL, Breath sounds = bilat, No respiratory distress Cardiovascular: Heart rate NL, Regular rhythm possible faint systolic ejection murmur during initial exam no murmur on recheck Abdomen: Atraumatic, Soft, Non-tender Back: Atraumatic, Full range of motion Upper Extremities Upper Extremity / MS: Atraumatic, Full range of motion Lower Extremity / Pelvis / MS: Atraumatic, Full range of motion Skin: Atraumatic, Color NL, No rash, Warm, Dry Neurologic: Oriented X3, Speech NL, No motor deficits, No sensory deficits Psychiatric: Affect NL, Mood NL Interpretation & Diagnostics Pulse Oximetry Interpretation Pulse Oximetry Interpretation: 97% on room air Pulse Oximetry: Pulse Ox normal Re-Eval/Medical Decision Source of Hx: Old records Time of Eval: 21:37 Patient Status: Condition improved Re-Evaluation/Progress Note: Pt rechecked, who is pain free. Pt is examined further and no murmur is found. The plan for discharge is discussed. The pt understands and agrees with the plan. All questions are addressed at this time. Counseled Regarding: Diagnosis, Need for follow-up, When/why to return to ED Discharge & Departure Primary Impression: Spinal headache Additional Impression: Conjunctiva disorder Disposition: Home Discharge Condition All VS Reviewed: Yes Condition: Stable Patient Instructions: Acute Headache (DC), Corneal Abrasion (ED), Subconjunctival Hemorrhage (ED) Additional Instructions: I think your headache is what is called a spinal headache. This has to do with the lumbar puncture. I think your symptoms should be gone in a day or two. If the symptoms persist then consider having a blood patch. What this means is that if you still have a severe headache when you stand up then come back to the hospital and we have an anesthesiologist perform a blood patch. Your doctor can set you up for this. This is usually performed during the routine operating room hours. Call tomorrow morning to set up close follow-up with your primary care physician. I think your eye may be developing an infection. Apply 2 drops of the ofloxacin 4 times daily. Keep the follow-up with the eye doctor. Take 1-2 [place] every 6 hours as needed for severe pain. Do not drive or drink alcohol or consume acetaminophen while taking the [place]. Do not drive tonight as you have received sedating medications. Do not consume alcohol tonight as you have received sedating medications. Do not hesitate to return if any problems or any worsening symptoms. Referrals: Lorena Leivne (PCP) Bell Attestation Portions of this note were transcribed by Alicia Cardoza. I, Dr. Moon personally performed the history, physical exam and medical decision-making; I reviewed and confirmed the accuracy of the information in the transcribed note. Signed by: Bell Norton, 04/03/2016 and 21:53. copies to: oLrena Levine Todd P DO Apr 03, 2016 19:48 ALICIA CARDOZA Apr 03, 2016 20:46
[2016-04-03] MEDS ORDERED: Ondansetron 8 mg ODT Tablet PO ONE (20:10)
[2016-04-03] MEDS ORDERED: HYDROmorphone 1 mg/mL Inj IM ONE (20:10)
[2016-04-03] MEDS ORDERED: Ketorolac 30 mg/mL 2 mL Inj IM ONE (20:10)
[2016-04-03] MEDS ORDERED: _HYDROcodone/APAP 5-325 mg Tablet PO PRN (21:40)
[2016-04-03 22:28] VITALS: BP 130/90; PULSE 83; RESP 16; O2SAT 98
[2016-04-03 22:29] VITALS: BP 130/90; PULSE 83; RESP 16; O2SAT 98
== END 2016-04-03 22:30 | disposition home or self-care (01) ==
LOC: SED 17:31
DX: G97.1 Other reaction to spinal and lumbar puncture (principal); H11.9 Unspecified disorder of conjunctiva; R51 Headache; M79.7 Fibromyalgia; Z98.890 Other specified postprocedural states
CPT/HCPCS: 96372; 99284; J1170; J1885

== ENCOUNTER 2016-04-07 16:03 | Emergency (ER) | payer MEDICAID ==
[~2016-04-07] VITALS: Ht 160 cm; Wt 75.5 kg
[2016-04-07 16:05] VITALS: BP 109/68; PULSE 86; RESP 16; O2SAT 98
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
[2016-04-07] MEDS ORDERED: Ketorolac 30 mg/mL 2 mL Inj IM ONE (19:00)
[2016-04-07 20:14] VITALS: BP 112/70; PULSE 88; RESP 18; O2SAT 99
== END 2016-04-07 20:17 | disposition home or self-care (01) ==
LOC: SED 16:03
DX: M79.661 Pain in right lower leg (principal); X58.XXXA Exposure to other specified factors, initial encounter; Y93.9 Activity, unspecified; Y99.8 Other external cause status; Y92.9 Unspecified place or not applicable; Z98.890 Other specified postprocedural states
CPT/HCPCS: 96372; 99283; J1885

== ENCOUNTER 2016-04-13 15:04 | Emergency (ER) | payer MEDICAID ==
[~2016-04-13] VITALS: Ht 160 cm; Wt 75.5 kg
[2016-04-13 15:08] VITALS: BP 119/76; PULSE 91; RESP 14; O2SAT 99
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
[2016-04-13] MEDS ORDERED: OXYC5TAB72 PO (16:43)
== END 2016-04-13 17:05 | disposition home or self-care (01) ==
LOC: SED 15:04
DX: M79.671 Pain in right foot (principal); M79.7 Fibromyalgia

== ENCOUNTER 2016-10-18 20:03 | Emergency (ER) | payer MEDICAID ==
[~2016-10-18] VITALS: Ht 160 cm; Wt 75.0 kg
[~2016-10-18 20:03] MED LIST changes: -ACYC200C2 PO; -AMOX-366 PO; -NPR500T PO; +PREG150C PO; -PREN1TAB47 PO; -PROC-4 PO; +SERT100T9 PO
[2016-10-18 20:11] VITALS: BP 115/82; PULSE 77; RESP 16; O2SAT 100
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
[2016-10-18] MEDS ORDERED: 0.9% Sodium Chloride 1,000 ML IV ONE (20:53)
[2016-10-18] MEDS ORDERED: Dexamethasone 10 mg/mL Inj IVPUSH ONE (20:55)
[2016-10-18] MEDS ORDERED: Ondansetron 2 mg/mL 2 mL Inj IVPUSH ONE (20:55)
[2016-10-18 21:23] LABS: BASOPHILS % (AUTO) 0.3 % (0-3); EOSINOPHILS % (AUTO) 1.5 % (0-5); MONOCYTES % (AUTO) 9.1 % (4-12); Mean Corpuscular Hemoglobin 29.1 pg (27.0-35.0); Mean Corpuscular Volume 86.3 fL (81-100); NEUTROPHILS % (AUTO) 55.9 % (40-74); Platelet Count 459 bil/L (150-400)
--- NOTE | 2016-10-18 21:48 | DRSVH ---
PROCEDURE: CT BRAIN WITHOUT CONTRAST ([id number]) INDICATIONS: worst headache TECHNIQUE: Noncontrast 4.5 mm thick angled axial sections acquired from the foramen magnum to the vertex, with c oronal reformats. COMPARISON: [facility], CT, CT BRAIN WO CON, 03/31/2016, 11:13. FINDINGS: Image quality: Excellent. CSF spaces: Basal cisterns are patent. No extra-axial fluid collections. Ventricles are normal in size and shape. Brain: No midline shift. No intracranial masses or hemorrhage. [place]-white matter interface is norm al. Skull and face: Calvarium and visualized facial bones are intact, without suspicious lesions. Sinuses: Visualized sinuses and mastoids are clear. IMPRESSION: No CT evidence of acute intracranial pathology. Dictated by: Rowdy Casas M.D. on 10/18/2016 at 21:44 Approved by: Rowdy Casas M.D. on 10/18/2016 at 21:46
[2016-10-18 22:04] LABS: ERYTHROCYTE SEDIMENTATION RATE 2 mm/hr (0-32)
[2016-10-18] MEDS ORDERED: Haloperidol 5 mg/mL Inj IVPUSH ONE (23:00)
[2016-10-18] MEDS ORDERED: LORazepam 0.5 mg Tablet PO ONE (23:05)
[2016-10-18] MEDS ORDERED: Potassium Chloride 20 mEq SR Tablet PO ONE (23:05)
[2016-10-19 01:30] VITALS: BP 120/80; PULSE 72; RESP 16; O2SAT 99
== END 2016-10-19 01:32 | disposition home or self-care (01) ==
LOC: SED 20:03
DX: R51 Headache (principal); E83.51 Hypocalcemia; E87.6 Hypokalemia
CPT/HCPCS: 36415; 70450; 80048; 85025; 85651; 86140; 96361; 96374; 96375; 99285; J1100; J1200; J1630; J1885; J2405; J7030

== ENCOUNTER 2016-11-02 08:22 | Emergency (ER) | payer MEDICAID ==
[~2016-11-02] VITALS: Ht 160 cm; Wt 75.0 kg
[2016-11-02 08:30] VITALS: BP 133/95; PULSE 88; RESP 20; O2SAT 99
--- NOTE | 2016-11-02 08:32 | ED.REPORT ---
HPI-Extremity Problem Lower Date of Service Nov 02, 2016 ED Provider: Alfredo Gilman MD The pt is a 40 y/o female w/ a hx of fibromyalgia, and depression, presenting to the ED c/o LLE pain onset 4 days ago. The pain begins at her buttock and radiates downward. This morning she noticed her L malleolus swelling as well as a pain on the lateral L foot. The pt does not recall any recent falls or heavy lifting that caused the pain. Denies, difficulty ambulating, urinary or fecal incontinence. The pts activity level has been normal and Tylenol does not help to decrease her pain. The pt also reports having an MRI taken a year ago and being told she has three bulging discs between her shoulders. She also reports being in recovery from alcohol abuse but drinking this past weekend to deal with the pain. Nursing Notes Stated Complaint: LEFT LEG PAIN Chief Complaint: LLE pain Nursing Notes Reviewed: Yes Allergies: Coded Allergies: No Known Allergies (Verified , 09/06/16) Scheduled Pregabalin (Lyrica) 150 Mg Capsule 150 MG PO BID Sertraline HCl (Sertraline) 100 Mg Tablet 200 MG PO DAILY General Time Seen by MD: 08:31 Chief Complaint Other (LLE pain ) Hx Obtained From: Patient Onset Occurred: 4 days ago Symptom Duration: Since onset Recent Healthcare: No recent hospitalization, Recent doctor visit Similar Sx Previous: Yes Past Medical History Past Medical History Notes: Dr. Jesus - Oncologist Past Medical History Fibromyalgia 3 bulging disks in back Chronic pain Thrombocytosis Past Surgical History intestinal surgery R foot surgery ear Family History Depression Smoking History Former Smoker (Pt quit 20 years ago ) Social History Alcohol Use: In recovery Drug Use: Denies drug use Other Social History: Local resident Ambulatory Status Independent Review of Systems Denies urinary or fecal incontinence; Musculoskeletal: Reports: Extremity pain (LLE ), Joint swelling (L ankle) Neurologic: Denies: Problem walking Complete sys rev & neg: except as marked. Physical Exam Initial Vital Signs Vital Signs (First) Date Time Temp Pulse Resp B/P Pulse Ox O2 Delivery O2 Flow Rate FiO2 11/02/16 08:30 36.8 88 20 133/95 99 Room Air Initial VS: Reviewed General/Constitutional: Well-developed, Well-nourished Head / Eyes: Atraumatic, Normocephalic, PERRL ENT: Mucous membranes moist, Conjunctiva normal, No scleral icterus Neck: Supple, Non-tender, Full range of motion Respiratory: Breath sounds normal, Clear to auscultation, No respiratory distress Cardiovascular: Regular rate & rhythm, Heart sounds normal, Intact distal pulses Abdomen / GI: Soft, Non-tender, No guarding, No rebound, No distention Lower Extremity / Pelvis / MS: No swelling (besides L malleolus ), No deformity , Neurologic intact, Vascular intact Ankle / Foot: No deformity Swelling of L lateral malleolus; Ankle is stable otherwise; Neurologic: Oriented X3, Speech NL Straight leg raise negative on the L Back: Non-tender, No midline vertebral tend, No paraspinal tenderness Re-Eval/Medical Decision Source of Hx: Old records Re-Evaluation/Progress : Time of Eval: 09:00 Counseled Regarding: Diagnosis, Lab results, Need for follow-up, When/why to return to ED Discharge & Departure Impression: Primary Impression: Left sciatic nerve pain Additional Impression: Left ankle swelling Disposition: Home Discharge Condition All VS Reviewed: Yes Condition: Stable Patient Instructions: Sciatica (ED) Additional Instructions: Thank for you entrusting us with your care today. Upon exam, I did not find any signs of major injury, spinal cord impingements, infections, or any signs you need surgery. Make sure to rest but continue to try to move around and stay active as well. Please follow up with your primary care provider in roughly a week with any further questions. If your foot and ankle continues to cause you pain, I recommend you see a marine fireman. I have attached his information below. Please return to the emergency department if you experience any new or worsening symptoms. I hope you feel better soon. Referrals: Mirza Espinoza DO (PCP) Durga Leija DPM Scribe Attestation Portions of this note were transcribed by Jean Pierre [place]. I, Dr. Gilman personally performed the history, physical exam and medical decision-making; I reviewed and confirmed the accuracy of the information in the transcribed note. copies to: Durga Leija DPM; Mirza Espinoza Kirk H MD Nov 02, 2016 08:32 Jean Pierre [place] Nov 02, 2016 08:50
== END 2016-11-02 09:06 | disposition home or self-care (01) ==
LOC: SED 08:22
DX: G57.02 Lesion of sciatic nerve, left lower limb (principal); M79.89 Other specified soft tissue disorders; F32.9 Major depressive disorder, single episode, unspecified; M79.7 Fibromyalgia; Z98.890 Other specified postprocedural states; Z87.891 Personal history of nicotine dependence